=== PATIENT | male | born 1985 | race Asian ===

== ENCOUNTER 2018-01-13 10:53 | Emergency (ER) | payer OTHER ==
[~2018-01-13] VITALS: Ht 165.1 cm; Wt 83.5 kg
[~2018-01-13 10:53] MED LIST: FENO145T PO
[2018-01-13 11:13] VITALS: BP 127/71
[2018-01-13 11:16] VITALS: BP 127/71
--- NOTE | 2018-01-13 11:16 | NUR ---
32 YO M BIB SELF W/ C/O RIGHT INDEX FINGER PAIN X TODAY. PT STATES HE FELL AND LANDED ON HIS FINGER AND IT IS "JAMMED UP". PT STATES, "I AM DYING OF PAIN. MY FRIENDS SAY I AM JUST BEING A WUSS". -DEFORMITY -EDEMA -ERYTHEMA -DISCOLORATION. DENIES HITTING HIS HEAD OR LOC. DENIES N/V. AAOX4, GCS 15. PT IS AAOX4, VSS AT THSI TIME, BED DOWN, BED RAIL UP X 1, ER MD AWARE AND NOTIFIED OF PT STATUS. HX PANCREATITIS, PSYCH RX ABILIFY
--- NOTE | 2018-01-13 11:16 | NUR ---
PT AMBULATES TO THE [facility] W/ STEADY GAIT TO WAIT FOR AN AVAILABLE BED W/ VSS.
--- NOTE | 2018-01-13 12:38 | NUR ---
Patient being evaluated by physician at bedside.
[2018-01-13] MEDS ORDERED: traMADol 50 MG TAB PO ONE (12:40)
== END 2018-01-13 12:38 | disposition home or self-care (01) ==
LOC: MED 10:53
DX: M79.644 Pain in right finger(s) (principal); Z79.899 Other long term (current) drug therapy
CPT/HCPCS: 73130; 99283; Q0092

== ENCOUNTER 2018-04-08 10:06 | Emergency (ER) | payer OTHER ==
[~2018-04-08] VITALS: Ht 165.1 cm; Wt 87.5 kg
[2018-04-08 11:13] VITALS: BP 126/64
--- NOTE | 2018-04-08 14:07 | NUR ---
CALLED FOR PATIENT NO RESPONSE AT THIS TIME.
--- NOTE | 2018-04-08 14:54 | NUR ---
SECOND CALL AT THIS TIME, PT NOT PRESENT. WILL ATTEMPT 3RD CALL
== END 2018-04-08 14:07 | disposition left against medical advice (07) ==
LOC: MED 10:06
DX: R10.12 Left upper quadrant pain (principal); R19.7 Diarrhea, unspecified; Z53.21 Procedure and treatment not carried out due to patient leaving prior to being seen by health care provider
CPT/HCPCS: 81002

== ENCOUNTER 2018-04-18 03:51 | Emergency (ER) | payer OTHER ==
[~2018-04-18] VITALS: Ht 165.1 cm; Wt 86.2 kg
--- NOTE | 2018-04-18 03:58 | NUR ---
PT AMBULATED TO BED 11.
[2018-04-18 04:06] VITALS: BP 130/77
--- NOTE | 2018-04-18 04:06 | NUR ---
PT BIB SELF FOR LLQ ABD PAIN X 20MIN. PT REPORTS NON-RADIATING THROBING PAIN AT 7/10 THAT WOKE HIM UP FROM SLEEP. ABD IS FIRM, DISTENDED, TENDER TO TOUCH IN LLQ. PT JUST HAD BM STATES IT WAS FORMED. PT REPORTS NAUSEA. PT DENIES FEVER, DIARRHEA, CONSTIPATION. VSS. ER MD TO SEE PT. MEDHX:PANCREATITIS, HYPERLIPIDEMIA, DEPRESSION RX:ABILIFY
[2018-04-18] MEDS ORDERED: NACL 0.9% 500 ML IV ONE (04:19)
[2018-04-18] MEDS ORDERED: ONDANSETRON 4 MG/2 ML VIAL IVP ONE (04:20)
[2018-04-18] MEDS ORDERED: KETOROLAC 30 MG/ML VIAL IVP ONE (04:20)
--- NOTE | 2018-04-18 04:23 | NUR ---
Dr. Perez evaluating patient at bedside.
[2018-04-18] MEDS ORDERED: NACL 0.9% 1,000 ML IV ONE (04:35)
--- NOTE | 2018-04-18 04:51 | NUR ---
DROPPED OFF BLOOD DRAW TO LAB
--- NOTE | 2018-04-18 05:23 | NUR ---
LAB UNABLE TO GET RESULTS, PER LAB SAMPLE IS TOO LIPIDEMIC, THEY HAVE TO SEND SAMPLE OUT. ELAINE EVRGARA NOTIFIED.
--- NOTE | 2018-04-18 05:31 | NUR ---
PT GOING TO X-RAY AT THIS TIME. PT DENIES PAIN AT THIS TIME, NO N/V/D OR FEVER. VSS.
--- NOTE | 2018-04-18 05:38 | NUR ---
Patient returned from XRAY. RN re-evaluating patient at bedside.
[2018-04-18 06:04] LABS: BASOPHILS # (AUTO) 0.1 K/uL (0.00-0.22); BASOPHILS % (AUTO) 1.7 % (0.0-2.0); EOSINOPHILS # (AUTO) 0.1 K/uL (0-0.4); EOSINOPHILS % (AUTO) 2.1 % (0.0-4.0); HEMATOCRIT 48.9 % (36-52); HEMOGLOBIN 16.2 g/dL (12.0-18.0); LYMPHOCYTES # (AUTO) 1.6 K/uL (2.0-11.5); LYMPHOCYTES % (AUTO) 31.3 % (20.5-51.1); MEAN CORPUSCULAR HEMOGLOBIN 29 pg (27-31); MEAN CORPUSCULAR HGB CONC 33 g/dL (33-37); MEAN CORPUSCULAR VOLUME 88.6 fL (80-94); MONOCYTES # (AUTO) 0.2 K/uL (0.8-1.0); MONOCYTES % (AUTO) 4.6 % (1.7-9.3); NEUTROPHILS # (AUTO) 3.1 K/uL (1.8-7.7); NEUTROPHILS % (AUTO) 60.3 % (42.2-75.2); PLATELET COUNT (AUTO) 136 K/uL (140-450); RED BLOOD CELL COUNT(AUTO) 5.52 MIL/uL (4.20-6.10); RED CELL DISTRIBUTION WIDTH 13.3 % (11.6-13.7)
[2018-04-18 06:07] LABS: WHITE BLOOD COUNT (AUTO) 5.1 K/uL (4.8-10.8)
[2018-04-18 06:14] VITALS: BP 111/59
--- NOTE | 2018-04-18 06:14 | NUR ---
Patient discharged with v/s stable. Written and verbal after care instructions given and explained. Patient alert, oriented and verbalized understanding of instructions. Ambulatory with steady gait. All questions addressed prior to discharge. ID band removed. Patient advised to follow up with PMD. Rx of SENOKOT, MOTRIN given. Patient educated on indication of medication including possible reaction and side effects. Opportunity to ask questions provided and answered.
[2018-04-18 13:00] LABS: POTASSIUM 4.2 mmol/L (3.5-5.1)
[2018-04-18 13:01] LABS: ALBUMIN 4.4 g/dL (3.4-5.0); ANION GAP 18.2 (8-16); CREATININE 1.3 mg/dL (0.7-1.3)
== END 2018-04-18 06:14 | disposition home or self-care (01) ==
LOC: MED 03:51
DX: K59.00 Constipation, unspecified (principal); R19.7 Diarrhea, unspecified; Z79.899 Other long term (current) drug therapy; Z88.8 Allergy status to other drugs, medicaments and biological substances
CPT/HCPCS: 36415; 74022; 80053; 81002; 83690; 85025; 96360; 96361; 99284; J1885; J7030

== ENCOUNTER 2018-05-09 02:18 | Emergency (ER) | payer OTHER ==
[~2018-05-09] VITALS: Ht 165.1 cm; Wt 88.5 kg
[2018-05-09 02:25] VITALS: BP 130/72
--- NOTE | 2018-05-09 02:52 | NUR ---
PATIENT C/O RIGHT UPPER QUADRANT PAIN THAT WOKE HIM UP AT 0145. PAIN WAS SHARP, /10, NO N/V, LBM 05/08/18, ABDOMEN DISTENDED,TENDER IN THE UPPER RIGHT QUADRANT, BS ACTIVE IN ALL 4 QUADRANTS. VSS, PATIENT SEEMS NON DISTRESSED. ED MD AT BEDSIDE FOR EVALUATION.
--- NOTE | 2018-05-09 03:30 | NUR ---
SEEN BY DR CREWS.
[2018-05-09 03:44] VITALS: BP 130/72
--- NOTE | 2018-05-09 03:45 | NUR ---
Patient discharged with v/s stable. Written and verbal after care instructions given and explained. Patient alert, oriented and verbalized understanding of instructions. Ambulatory with steady gait. All questions addressed prior to discharge. ID band removed. Patient advised to follow up with PMD. Rx of LACTULOSE, MINERAL OIL given. Patient educated on indication of medication including possible reaction and side effects. Opportunity to ask questions provided and answered.
== END 2018-05-09 03:45 | disposition home or self-care (01) ==
LOC: MED 02:18
DX: K59.00 Constipation, unspecified (principal); Z79.899 Other long term (current) drug therapy
CPT/HCPCS: 74022; 99283

== ENCOUNTER 2018-06-15 23:31 | Emergency (ER) | payer OTHER ==
[~2018-06-15] VITALS: Ht 165.1 cm; Wt 89.8 kg
--- NOTE | 2018-06-15 23:35 | NUR ---
AMBULATED TO ER BED 7
--- NOTE | 2018-06-15 23:40 | NUR ---
PT BIB SELF C/O LUQ PAIN. PT STATES HE WAS SLEEPING AND WOKE UP TO LUQ PAIN, DENIES TRAUMA OR INJURY. PT STATES 7/10 SHARP LUQ PAIN X20 MINS; +TENDERNESS TO SITE. PT DENIES N/V/D. PT STATES NORMAL URINATION BATTER, LBM: 06/15/18 WNL PER PT. PT SPEAKING IN CLEAR COMPLETE SENTENCES. PT IN BED; SAFETY PRECAUTIONS IN PLACE. PENDING ER MD RITCHIE. PMH: PANCREATITIS RX: ABILIFY
[2018-06-15 23:41] VITALS: BP 119/84
--- NOTE | 2018-06-15 23:57 | NUR ---
DR. BAEZA AT BEDSIDE FOR EVALUATION.
[2018-06-16] MEDS ORDERED: NACL 0.9% 1,000 ML IV ONE ×2 (00:32→01:50)
[2018-06-16] MEDS ORDERED: MORPHINE SULFATE 4 MG/ML SYR IVP ONE (00:35)
[2018-06-16] MEDS ORDERED: ONDANSETRON 4 MG/2 ML VIAL IVP ONE (00:35)
[2018-06-16 00:52] LABS: BASOPHILS # (AUTO) 0.1 K/uL (0.00-0.22); BASOPHILS % (AUTO) 0.8 % (0.0-2.0); EOSINOPHILS # (AUTO) 0.2 K/uL (0-0.4); EOSINOPHILS % (AUTO) 2.4 % (0.0-4.0); HEMATOCRIT 46.8 % (36-52); HEMOGLOBIN 17.3 g/dL (12.0-18.0); LYMPHOCYTES # (AUTO) 2.8 K/uL (2.0-11.5); LYMPHOCYTES % (AUTO) 39.4 % (20.5-51.1); MEAN CORPUSCULAR HEMOGLOBIN 32 pg (27-31); MEAN CORPUSCULAR HGB CONC 37 g/dL (33-37); MEAN CORPUSCULAR VOLUME 85.9 fL (80-94); MONOCYTES # (AUTO) 0.4 K/uL (0.8-1.0); MONOCYTES % (AUTO) 5.9 % (1.7-9.3); NEUTROPHILS # (AUTO) 3.6 K/uL (1.8-7.7); NEUTROPHILS % (AUTO) 51.5 % (42.2-75.2); PLATELET COUNT (AUTO) 225 K/uL (140-450); RED BLOOD CELL COUNT(AUTO) 5.44 MIL/uL (4.20-6.10); RED CELL DISTRIBUTION WIDTH 13.7 % (11.6-13.7)
[2018-06-16] MEDS ORDERED: KETOROLAC 30 MG/ML VIAL IVP ONE (00:55)
--- NOTE | 2018-06-16 01:00 | NUR ---
PT CHANGED HIS MIND AND DOES NOT WANT MORPHINE. PT STATES PAIN IS NOT STRONG RIGHT NOW AND IF HE COULD GET SOMETHING NOT STRONG, ER MD AWARE. WILL FOLLOW UP W/ ORDERS
--- NOTE | 2018-06-16 01:07 | NUR ---
PT DECLINED ZOFRAN MEDICATION AT THIS TIME.
[2018-06-16 01:19] LABS: BARBITURATE, URINE NEGATIVE ng/ml (NEG <=200); BENZODIAZEPINE, URINE NEGATIVE ng/mL (NEG <=200); CANNABINOID, URINE NEGATIVE ng/mL (NEG <=50); COCAINE, URINE NEGATIVE ng/mL (NEG <=300); OPIATE, URINE NEGATIVE ng/mL (NEG <=2000); PHENCYCLIDINE SCREEN,URINE NEGATIVE ng/mL (NEG <=25)
[2018-06-16 01:21] LABS: ANION GAP 29.2 (8-16); CARBON DIOXIDE 14.8 mmol/L (21-32)
[2018-06-16 01:24] LABS: ALBUMIN 3.8 g/dL (3.4-5.0)
[2018-06-16] MEDS ORDERED: ABI10 PO (01:30)
--- NOTE | 2018-06-16 02:47 | NUR ---
Patient discharged with v/s stable. IV d/c; tip intact, pressure and bandage applied, bleeding controlled; sight benign. Written and verbal after care instructions given and explained. Patient verbalized understanding. Ambulatory with steady gait. All questions addressed prior to discharge. Advised to follow up with PMD.
[2018-06-16 02:50] VITALS: BP 118/83
== END 2018-06-16 02:47 | disposition home or self-care (01) ==
LOC: MED 23:31
DX: R10.13 Epigastric pain (principal); Z79.899 Other long term (current) drug therapy; Z88.8 Allergy status to other drugs, medicaments and biological substances
CPT/HCPCS: 36415; 80053; 80305; 81002; 83690; 85025; 96374; 99283; J1885; J2270; J2405; J7030

== ENCOUNTER 2018-07-06 02:30 | Inpatient (IN) | payer OTHER ==
[~2018-07-06] VITALS: Ht 165.1 cm; Wt 90.7 kg
[~2018-07-06 02:30] MED LIST changes: +ABI10 PO
[2018-07-06 02:35] VITALS: BP 142/87
--- NOTE | 2018-07-06 02:40 | NUR ---
33 Y/O M BIBA WITH C/O LUQ ABDOMINAL PAIN X1 HOUR. 9/10 PAIN, SHARP AND CONSTANT. PT STATED, "I ATE A FATTY MEAL AND MILKSHAKE LAST NIGHT. THEN AT 2AM THE PAIN WOKE ME UP." +N/V. LUQ TENDER TO TOUCH. BOWEL SOUNDS [id number] PRESENT. BEDRAILS X2 UP. HOB ELEVATED FOR COMFORT. ERMD NOTIFIED. WILL CONTINUE TO MONITOR.
[2018-07-06] MEDS ORDERED: PROMETHAZINE 25 MG/ML VIAL IVP ONE (02:50)
[2018-07-06] MEDS ORDERED: fentaNYL 0.05 MG/ML VIAL IVP ONE (02:50)
[2018-07-06] MEDS ORDERED: NACL 0.9% 1,000 ML IV ONE (02:50)
[2018-07-06 02:53] LABS: BASOPHILS # (AUTO) 0.1 K/uL (0.00-0.22); BASOPHILS % (AUTO) 0.4 % (0.0-2.0); EOSINOPHILS # (AUTO) 0.1 K/uL (0-0.4); HEMATOCRIT 42.9 % (36-52); HEMOGLOBIN 17.1 g/dL (12.0-18.0); LYMPHOCYTES % (AUTO) 25.1 % (20.5-51.1); MEAN CORPUSCULAR HEMOGLOBIN 35 pg (27-31); MEAN CORPUSCULAR HGB CONC 40 g/dL (33-37); MEAN CORPUSCULAR VOLUME 87.2 fL (80-94); MONOCYTES # (AUTO) 0.8 K/uL (0.8-1.0); MONOCYTES % (AUTO) 6.9 % (1.7-9.3); NEUTROPHILS # (AUTO) 7.9 K/uL (1.8-7.7); NEUTROPHILS % (AUTO) 66.6 % (42.2-75.2); PLATELET COUNT (AUTO) 220 K/uL (140-450); RED BLOOD CELL COUNT(AUTO) 4.92 MIL/uL (4.20-6.10); RED CELL DISTRIBUTION WIDTH 13.6 % (11.6-13.7); WHITE BLOOD COUNT (AUTO) 11.8 K/uL (4.8-10.8)
[2018-07-06 03:03] LABS: ANION GAP 20.5 (8-16); CARBON DIOXIDE 16.3 mmol/L (21-32); CREATININE 1.5 mg/dL (0.7-1.3); POTASSIUM 3.8 mmol/L (3.5-5.1)
[2018-07-06 03:09] LABS: ALBUMIN 3.1 g/dL (3.4-5.0); TOTAL BILIRUBIN 1.9 mg/dL (0.0-1.0)
[2018-07-06 03:44] LABS: APPEARANCE,URINE CLEAR (CLEAR); BILIRUBIN,URINE NEGATIVE (NEGATIVE); BLOOD, URINE TRACE-L (NEGATIVE); COLOR,URINE YELLOW (YELLOW); LEUKOCYTE ESTERASE ,URINE NEGATIVE (NEGATIVE); NITRITE, URINE NEGATIVE (NEGATIVE); UGLUCOSE NEGATIVE (NEGATIVE)
--- NOTE | 2018-07-06 03:50 | NUR ---
PT ASLEEP. VISIBLE CHEST RISE AND FALL. AROUSABLE TO NAME. VSS AT THIS TIME. WILL CONTINUE TO MONITOR.
[2018-07-06 03:54] LABS: RBC,URINE 0-5 /HPF (0-5); WBC,URINE 0-5 /HPF (0-5)
--- NOTE | 2018-07-06 04:55 | NUR ---
PT ASLEEP. VSS AT THIS TIME. CONTINUING TO MONITOR.
--- NOTE | 2018-07-06 05:35 | NUR ---
Patient will be admitted to care of Dr. Gonzalez. Admited to [facility]. Will go to room 105A. Belongings list completed. VSS at time of transfer. Report to JOSE Pickard. Transfer of care at this time.
--- NOTE | 2018-07-06 05:45 | NUR ---
RECEIVED FROM ER PT, AWAKE, ALERT, ORIENTED X 4, PT NOTED TO BE ABLE TO AMBULATE TO HIS BED AT THE UNIT. WITH IVF ON THE R AC G 20 IV, INTACT. RUNNING NS AT 100 ML/HR FROM THE ER. ORIENTED TO UNIT. POC DISCUSSED. PLACED AT LOW BED P[OSITION. CALL LIGHT W/IN REACH
--- NOTE | 2018-07-06 05:49 | NUR ---
C/O OF PAIN ON THE ABDOMEN 09/19 WILL CALL FOR PAIN MEDS, AND OTHER ORDERS
--- NOTE | 2018-07-06 05:57 | NUR ---
DR. DEL ANGEL CALLED BACK HUMAN RESOURCES ASSOCIATE FRO DR. QUINTEROS, ORDERED DILAUDID, ZOFRAN AND AFTER NS IVF FROM ER; TO ADMINISTER 1/2 NS AT 100 ML/HR.. ORDERED NPO
[2018-07-06] MEDS ORDERED: ONDANSETRON 4 MG/2 ML VIAL IVP PRN (06:00)
[2018-07-06] MEDS ORDERED: HYDROmorphone 1 MG/ML AMP IVP PRN (06:00)
[2018-07-06] MEDS: NACL 0.45% 1,000 ML IV SCH ×2 (06:22→16:30)
--- NOTE | 2018-07-06 06:23 | NUR ---
ORDERED FOR A NEW IVF, 02/11 NS, CANCELLED THE ONGOING NS
[2018-07-06 06:32] VITALS: BP 113/63
--- NOTE | 2018-07-06 07:05 | NUR ---
REPORT GIVEN TO NIGHT NURSE JENY, PT SLEEPING, EASILY AROUSABLE TO VERBAL STIMILI, ORIENTED AND APPROPRIATE. PT TOLERATING CLEAR LIQUID DIET, DENIES NV, STATES PAIN 2/10 AND TOLERABLE DURING SHIFT. CALL LIGHT AND PERSONAL ITEMS WITHIN EASY REACH, SAFETY MEASURES IN PLACE NO S/S OF ACUTE DISTRESS NOTED.
--- NOTE | 2018-07-06 07:45 | NUR ---
RECEIVED REPORT FROM NIGHT NURSE, PT SLEEPING, EASILY AROUSABLE TO VERBAL STIMULI, ORIENTED AND APPROPRIATE. PT DENIES, PAIN, DENIES NV, CALL LIGHT AND PERSONAL ITEMS WITHIN EASY REACH, SAFETY MEASURES IN PLACE NO S/S OF ACUTE DISTRESS NOTED, WILL CONTINUE TO MONITOR.
--- NOTE | 2018-07-06 07:54 | NUR ---
ENDORSED TO NEXT SHIFT FOR CONTINUITY OF CARE, PT ASLEEP , BUT CAN BE EASILY AROUSED BY NAME. PT IN STABLE CONDITION AT THIS TIME. Addendum: 07/06/18 at 6325 by Kell Steen RN AMEND TO [id number]
[2018-07-06 08:00] VITALS: BP 112/63
--- NOTE | 2018-07-06 09:30 | NUR ---
PT SLEEPING, EASILY AROUSABLE TO VERBAL STIMULI, ORIENTED AND APPROPRIATE. PT DENIES, PAIN, DENIES NV. STATES HE IS A SOCIAL SMOKER, PROVIDED EDUCATION ON SMOKING CESSATION, PT IS AGREEABLE. CALL LIGHT AND PERSONAL ITEMS WITHIN EASY REACH, SAFETY MEASURES IN PLACE NO S/S OF ACUTE DISTRESS NOTED, WILL CONTINUE TO MONITOR.
[2018-07-06] MEDS ORDERED: HYDROcodone/APAP 5/325 MG 1 TAB TAB PO PRN (10:40)
--- NOTE | 2018-07-06 11:30 | NUR ---
PT CONTINUES TO SLEEP INTERMITTENTLY, EASILY AROUSABLE A/O AND APPROPRIATE. PT DENIES, PAIN, DENIES NV, CALL LIGHT AND PERSONAL ITEMS WITHIN EASY REACH, SAFETY MEASURES IN PLACE NO S/S OF ACUTE DISTRESS NOTED, WILL CONTINUE TO MONITOR.
--- NOTE | 2018-07-06 12:06 | NUR ---
PATIENT HAS BEEN SCREENED AND CATEGORIZED MODERATE NUTRITION RISK. PATIENT WILL BE SEEN WITHIN 3-5 DAYS OF ADMISSION. 07/09/18ADA DAUGHERTY MBA, RD
--- NOTE | 2018-07-06 13:20 | NUR ---
PER US TECH ABD US COMPLETE, PT AWAKENED AND OFFERED CLEAR LIQUID DIET TRAY, ACCEPTED TRAY AND RESUMED SLEEPING. NO S/S OF ACUTE DISTRESS NOTED AT THIS TIME CALL LIGHT AND PERSONAL ITEMS WITHIN EASY REACH, SAFETY MEASURES IN PLACE, WILL CONTINUE TO MONITOR.
--- NOTE | 2018-07-06 15:30 | NUR ---
PT AWAKE A/O FAMILY AT BEDSIDE, PT TOLERATED PO INTAKE WELL DENIES N/V STATES PAIN 1-2/10 AND IS TOLERABLE. CALL LIGHT AND PERSONAL ITEMS WITHIN EASY REACH, SAFETY MEASURES IN PLACE, NO S/S OF ACUTE DISTRESS AT THIS TIME, WILL CONTINUE TO MONITOR.
[2018-07-06 16:00] VITALS: BP 129/76
--- NOTE | 2018-07-06 16:30 | NUR ---
DR REESE PAGED REGARDING ABDOMINAL XR RESULTS AND CURRENT VS, AWAITING CALL BACK, CHARGE NURSE AWARE.
--- NOTE | 2018-07-06 17:21 | NUR ---
DR REESE IN HOUSE ROUNDING, NOTIFIED OF ABD ULTRASOUND RESULTS AND VS W ELEVATED TEMP AND BP, NO NEW ORDERS RECEIVED.
--- NOTE | 2018-07-06 17:30 | NUR ---
PT NOTED NOT TO HAVE ORDER FOR TEMPERATURE MANAGEMENT, DR REESE NOTIFIED; ORDERS TO BE WRITTEN.
[2018-07-06] MEDS ORDERED: ACETAMINOPHEN 325 MG TAB PO PRN (17:35)
--- NOTE | 2018-07-06 19:20 | NUR ---
RECEIVED REPORT FROM AM NURSE. PT SLEEPING IN BED BUT EASILY AROUSABLE. NO C/O DISCOMFORT. LEFT AC 20 G INTACT AND INFUSING WELL. SAFETY PRECAUTIONS IN PLACE, NON-SLIP SOCKS, BED IN LOW POSITION, CALL LIGHT WITHIN REACH. WILL CONTINUE TO MONITOR.
--- NOTE | 2018-07-06 21:05 | NUR ---
ROUNDED ON PT. PT SLEEPING IN BED, NO VISIBLE SIGNS OF DISTRESS. SAFETY MEASURES IN PLACE, CALL LIGHT WITHIN REACH. WILL CONTINUE TO MONITOR.
--- NOTE | 2018-07-06 23:15 | NUR ---
ROUNDED ON PT. PT FOOD TRAY AT BEDSIDE. PT STATED THAT HE WOULD STILL EAT FOOD. PT WAS GIVEN A POPSICLE REQUESTED. NO C/O DISCOMFORT. WILL CONTINUE TO MONITOR.
[2018-07-07] VITALS: BP 115/68
--- NOTE | 2018-07-07 | NUR ---
VITALS TAKEN. PT SLEEPING BUT EASILY AROUSABLE. PT BROUGHT PILLOW PER REQUEST. ALL NEEDS ATTENDED TO. SAFETY MEASURES IN PLACE. CALL LIGHT WITHIN REACH. WILL CONTINUE TO MONITOR.
--- NOTE | 2018-07-07 02:00 | NUR ---
ROUNDED ON PT. PT ASLEEP IN BED. BREATHING EQUAL AND UNLABORED. SAFETY MEASURES IN PLACE. CALL LIGHT WITHIN REACH. WILL CONTINUE TO MONITOR.
[2018-07-07] MEDS: NACL 0.45% 1,000 ML IV SCH ×3 (02:17→22:52)
--- NOTE | 2018-07-07 04:30 | NUR ---
ROUNDED ON PT. PT ASLEEP IN BED. NO VISIBLE SIGNS OF DISTRESS. CALL LIGHT WITHIN REACH. WILL CONTINUE TO MONITOR.
--- NOTE | 2018-07-07 06:15 | NUR ---
ROUNDED ON PT. PT SLEEPING IN BED. BREATHING EQUAL AND UNLABORED. CALL LIGHT WITHIN REACH. WILL ENDORSE TO AM NURSE FOR CONTINUITY OF CARE.
--- NOTE | 2018-07-07 07:05 | NUR ---
ENDORSED PT TO AM NURSE, PT IN STABLE CONDITION.
[2018-07-07 07:09] LABS: BASOPHILS % (AUTO) 0.3 % (0.0-2.0); EOSINOPHILS # (AUTO) 0.1 K/uL (0-0.4); EOSINOPHILS % (AUTO) 1.4 % (0.0-4.0); HEMATOCRIT 41.9 % (36-52); HEMOGLOBIN 14.4 g/dL (12.0-18.0); LYMPHOCYTES # (AUTO) 1.6 K/uL (2.0-11.5); LYMPHOCYTES % (AUTO) 16.1 % (20.5-51.1); MEAN CORPUSCULAR HEMOGLOBIN 30 pg (27-31); MEAN CORPUSCULAR HGB CONC 34 g/dL (33-37); MONOCYTES # (AUTO) 0.7 K/uL (0.8-1.0); MONOCYTES % (AUTO) 6.5 % (1.7-9.3); NEUTROPHILS # (AUTO) 7.7 K/uL (1.8-7.7); NEUTROPHILS % (AUTO) 75.7 % (42.2-75.2); PLATELET COUNT (AUTO) 184 K/uL (140-450); RED BLOOD CELL COUNT(AUTO) 4.82 MIL/uL (4.20-6.10); WHITE BLOOD COUNT (AUTO) 10.2 K/uL (4.8-10.8)
--- NOTE | 2018-07-07 07:25 | NUR ---
PATIENT WAS AWAKE, ALERT. RESPIRATION EVEN, UNLABOR ON ROOM AIR. SKIN DRY AND WARM. IV PATENT AND INTACT. DENIED PAIN AT THIS TIME. PLAN OF CARE WAS DISCUSSED WITH PATIENT. BED AT LOW POSITION, SIDE RAILS UP. CALL LIGHT WITHIN REACH
[2018-07-07 08:00] VITALS: BP 113/78
[2018-07-07 08:11] LABS: CHOL/HDL RATIO 6.3 (1-4.5)
[2018-07-07 08:12] LABS: ALBUMIN 3.2 g/dL (3.4-5.0); ANION GAP 14.1 (8-16); CARBON DIOXIDE 25.1 mmol/L (21-32); CREATININE 1.3 mg/dL (0.7-1.3); POTASSIUM 4.2 mmol/L (3.5-5.1); TOTAL BILIRUBIN 2.6 mg/dL (0.0-1.0)
[2018-07-07] MEDS: FENOFIBRATE 48 MG TAB PO SCH (09:45)
--- NOTE | 2018-07-07 10:00 | NUR ---
PT WAS ALERT, AWAKE. MEDICATIONS WERE GIVEN PER ORDER. PT WAS OCCUPIED IN LAPTOP. NO DISTRESS NOTED.
--- NOTE | 2018-07-07 12:00 | NUR ---
PATIENT WAS AWAKE, ALERT, EATING LUNCH COMFORTABLY. RESPIRATION EVEN, UNLABOR ON ROOM AIR. DENIED N/V. PATIENT TOLERATING DIET WELL. NO DISTRESS NOTED AT THIS TIME
--- NOTE | 2018-07-07 14:00 | NUR ---
PATIENT WAS SLEEPING COMFORTABLY, RESPIRATION EVEN, UNLABOR ON ROOM AIR. NO DISTRESS NOTED AT THIS TIME
[2018-07-07 16:00] VITALS: BP 109/73
--- NOTE | 2018-07-07 16:00 | NUR ---
PT ALERT, AWAKE. NO C/O PAIN AT THIS TIME. CALL LIGHT AND PERSONAL ITEMS WITHIN REACH. SAFETY MEASURES IN PLACE.
--- NOTE | 2018-07-07 18:23 | NUR ---
PT ALERT AND AWAKE, OCCUPIED IN RESTROOM. NO C/O PAIN AT THIS MOMENT.
--- NOTE | 2018-07-07 19:15 | NUR ---
ENDORSEMENT GIVEN TO BROADCAST DESIGNER NURSE. PATIENT IS STABLE AT THIS TIME
--- NOTE | 2018-07-07 19:16 | NUR ---
RECEIVED REPORT FROM AM NURSE. PT WATCHING TV IN BED, AWAKE, ALERT AND ORIENTED X4. PT ABLE TO VERBALIZE NEEDS. LT AC 20G INTACT AND INFUSING WELL. PT URINAL AT BEDSIDE. SAFETY MEASURES IN PLACE. CALL LIGHT WITHIN REACH. WILL CONTINUE TO MONITOR.
--- NOTE | 2018-07-07 21:30 | NUR ---
PT AWAKE, ALERT AND ORIENTED WATCHING TV IN BED. PT RECEIVED APPLE JUICE REQUESTED. ALL NEEDS ATTENDED TO. SAFETY MEASURES IN PLACE. URINAL AT BEDSIDE, CALL LIGHT WITHIN REACH. WILL CONTINUE TO MONITOR.
--- NOTE | 2018-07-07 23:00 | NUR ---
ROUNDED ON PT. PT AWAKE, ALERT AND ORIENTED WATCHING TV IN BED. PT ASKED TO D/C IV FLUIDS. IT WAS EXPLAINED TO THE PT THE RATIONAL FOR IV FLUIDS. PT AGREED TO BE COMPLIANT WITH IV FLUID ADMINISTRATION. ALL NEEDS ATTENDED TO. SAFETY MEASURES IN PLACE. CALL LIGHT WITHIN REACH. WILL CONTINUE TO MONITOR.
[2018-07-08] VITALS: BP 100/54
--- NOTE | 2018-07-08 | NUR ---
VITALS TAKEN. PT ASLEEP BUT EASILY AROUSABLE. NO C/O DISCOMFORT. SAFETY MEASURES IN PLACE. URINAL AT BEDSIDE, CALL LIGHT WITHIN REACH. WILL CONTINUE TO MONITOR.
--- NOTE | 2018-07-08 02:00 | NUR ---
ROUNDED ON PT. PT SLEEPING IN BED, BREATHING EQUAL AND UNLABORED. CALL LIGHT WITHIN REACH.
--- NOTE | 2018-07-08 04:00 | NUR ---
ROUNDED ON PT. PT SLEEPING. BREATHING EQUAL AND UNLABORED. CALL LIGHT WITHIN REACH.
--- NOTE | 2018-07-08 06:00 | NUR ---
ROUNDED ON PT. LAB AT BEDSIDE. PT AWAKE, ALERT AND ORIENTED. NO C/O DISCOMFORT. CALL LIGHT AT BEDSIDE.
--- NOTE | 2018-07-08 07:00 | NUR ---
RECEIVED REPORT FROM ELECTRICIAN APPRENTICE POWERHOUSE NURSE. PT AWAKE, ALERT IN BED. RESPIRATIONS EVEN AND UNLABORED ON RA. SKIN DRY AND WARM. IV PATENT AND INTACT. PT DENIES PAIN, N/V. PT TOLERATING FULL LIQUID DIET WELL. WILL ADVANCE DIET PER ORDER. POC WAS DISCUSSED WITH PATIENT. BED AT LOW POSITION. SIDERAILS X2 ARE UP. CALL LIGHT WITHIN REACH.
[2018-07-08 07:02] LABS: BASOPHILS % (AUTO) 0.4 % (0.0-2.0); EOSINOPHILS # (AUTO) 0.3 K/uL (0-0.4); EOSINOPHILS % (AUTO) 3.3 % (0.0-4.0); HEMATOCRIT 40.7 % (36-52); HEMOGLOBIN 13.7 g/dL (12.0-18.0); LYMPHOCYTES # (AUTO) 1.4 K/uL (2.0-11.5); LYMPHOCYTES % (AUTO) 17.1 % (20.5-51.1); MEAN CORPUSCULAR HEMOGLOBIN 30 pg (27-31); MEAN CORPUSCULAR HGB CONC 34 g/dL (33-37); MEAN CORPUSCULAR VOLUME 87.3 fL (80-94); MONOCYTES # (AUTO) 0.6 K/uL (0.8-1.0); MONOCYTES % (AUTO) 7.2 % (1.7-9.3); NEUTROPHILS # (AUTO) 5.9 K/uL (1.8-7.7); PLATELET COUNT (AUTO) 189 K/uL (140-450); RED BLOOD CELL COUNT(AUTO) 4.66 MIL/uL (4.20-6.10); RED CELL DISTRIBUTION WIDTH 13.9 % (11.6-13.7); WHITE BLOOD COUNT (AUTO) 8.1 K/uL (4.8-10.8)
--- NOTE | 2018-07-08 07:06 | NUR ---
ENDORSED TO AM NURSE. PT IN STABLE CONDITION.
[2018-07-08 07:29] LABS: ALBUMIN 3.1 g/dL (3.4-5.0); ANION GAP 13.2 (8-16); CARBON DIOXIDE 25.1 mmol/L (21-32); CREATININE 1.3 mg/dL (0.7-1.3); POTASSIUM 4.3 mmol/L (3.5-5.1); TOTAL BILIRUBIN 2.1 mg/dL (0.0-1.0)
[2018-07-08 07:45] LABS: MAGNESIUM 2.1 mg/dL (1.8-2.4); PHOSPHORUS 2.9 mg/dL (2.5-4.9)
[2018-07-08 08:00] VITALS: BP 117/61
[2018-07-08] MEDS: NACL 0.45% 1,000 ML IV SCH (08:57)
[2018-07-08] MEDS: FENOFIBRATE 48 MG TAB PO SCH (09:00)
--- NOTE | 2018-07-08 09:00 | NUR ---
PATIENT WAS AWAKE, ALERT. RESPIRATION EVEN, UNLABOR ON ROOM AIR. MEDS WERE GIVEN PER ORDER. NO DISTRESS NOTED AT THIS TIME.
--- NOTE | 2018-07-08 10:35 | NUR ---
CALLED OFFICE OF DR ROQUE [phone] SPOKE TO JESSICA, FOLLOW UP APPOINTMENT MADE FOR 07/16/18 AT 1015AM AT [address], [place], [place] [address]. COPY OT APPOINTMENT SCHEDULE GIVEN TO PATIENT AND PRIMARY NURSE AYAD GARCIA MADE AWARE.
--- NOTE | 2018-07-08 11:27 | NUR ---
DISCHARGE INSTRUCTIONS AND PRESCRIPTIONS WERE GIVEN AND EXPLAINED TO THE PT. PT VERBALIZED UNDERSTANDING. FOLLOW-UP APPT WAS GIVEN PER PATIENT CARE. IV WAS REMOVED. CATHETER INTACT. NO ACTIVE BLEEDING SEEN. Addendum: 07/08/18 at 1132 by Liudmila Jackson RN PT VERBALIZED THAT NURSING IS NOT ALLOWED TO CONTACT FAMILY MEMBERS REGARDING DISCHARGE PLAN.
--- NOTE | 2018-07-08 11:56 | NUR ---
PANCREATITIS EDUCATION WAS PROVIDED TO PT, AND PT ACCEPTED.
--- NOTE | 2018-07-08 12:00 | NUR ---
PATIENT STATED HE WILL BE STAYING AT [address] [place] [address] JOVAN ALEGRIA NEVERSINK, NOT WANT HIS INFORMATION RELEASED TO ANYONE. PATIENT WAS ESCORTED OUT TO [facility], AMBULATORY WITH STEADY GAIT. ALL BELONGINGS WERE TAKEN WITH THE PATIENT. PATIENT IS STABLE AT THIS TIME.
== END 2018-07-08 12:00 | disposition home or self-care (01) | DRG 282 ==
LOC: MED 02:30 → MTU 05:06
PROVIDERS: ADMIT Internal Medicine Pulmonary Disease; ATTEND Internal Medicine Pulmonary Disease
DX: K85.90 Acute pancreatitis without necrosis or infection, unspecified (principal); N17.0 Acute kidney failure with tubular necrosis; E87.1 Hypo-osmolality and hyponatremia; E78.1 Pure hyperglyceridemia; E86.9 Volume depletion, unspecified; E78.5 Hyperlipidemia, unspecified; F31.9 Bipolar disorder, unspecified; Z91.14 Patient's other noncompliance with medication regimen; Z88.2 Allergy status to sulfonamides; I10 Essential (primary) hypertension; Z87.891 Personal history of nicotine dependence; E44.1 Mild protein-calorie malnutrition
CPT/HCPCS: 36415; 76700; 80053; 81001; 82150; 83036; 83690; 83735; 84100; 85025; 87081; 96361; 96374; 96375; 99285; J1170; J2550; J3010; Q0092

== ENCOUNTER 2018-07-18 02:49 | Inpatient (IN) | payer OTHER ==
[~2018-07-18] VITALS: Ht 165.1 cm; Wt 99.8 kg
[2018-07-18 02:50] VITALS: BP 124/70
--- NOTE | 2018-07-18 03:03 | NUR ---
33 Y/O M PRESENTED TO ED WITH C/O LUQ ABDOMINAL PAIN. 11/19, ACHING. PAIN DOESN'T RADIATE. PER PT, "6 WEEKS AGO I WAS DIAGNOSED WITH PANCREATITIS. THIS FEELS JUST LIKE IT." TENDER TO TOUCH. +BOWEL SOUNDS X4 QUADRANTS. DENIES N/V/D. ERMD NOTIFIED. WILL CONTINUE TO MONITOR.
[2018-07-18] MEDS ORDERED: NACL 0.9% 1,000 ML IV SCH (03:31)
[2018-07-18] MEDS ORDERED: MORPHINE SULFATE 4 MG/ML SYR IVP ONE ×3 (03:35→11:45)
[2018-07-18] MEDS ORDERED: ONDANSETRON 4 MG/2 ML VIAL IVP ONE (03:35)
[2018-07-18 04:30] LABS: BASOPHILS % (AUTO) 0.5 % (0.0-2.0); EOSINOPHILS # (AUTO) 0.1 K/uL (0-0.4); EOSINOPHILS % (AUTO) 1.2 % (0.0-4.0); HEMATOCRIT 41.9 % (36-52); HEMOGLOBIN 14.8 g/dL (12.0-18.0); LYMPHOCYTES % (AUTO) 20.5 % (20.5-51.1); MEAN CORPUSCULAR HEMOGLOBIN 31 pg (27-31); MEAN CORPUSCULAR HGB CONC 35 g/dL (33-37); MEAN CORPUSCULAR VOLUME 87.2 fL (80-94); MONOCYTES # (AUTO) 0.5 K/uL (0.8-1.0); MONOCYTES % (AUTO) 4.9 % (1.7-9.3); NEUTROPHILS % (AUTO) 72.9 % (42.2-75.2); PLATELET COUNT (AUTO) 96 K/uL (140-450); RED CELL DISTRIBUTION WIDTH 13.6 % (11.6-13.7); WHITE BLOOD COUNT (AUTO) 9.6 K/uL (4.8-10.8)
--- NOTE | 2018-07-18 04:32 | NUR ---
RECEIVED CALL FROM LAB, PT BLOODWORK WILL HAVE TO BE SENT OUT DUE BLOOD BEING LIPEMIC. DR. BEDOYA MADE AWARE. Addendum: 07/18/18 at 0525 by ViRTUAL INTERACTiVE RECEIVED CALL FROM LAB, PT BLOODWORK WILL HAVE TO BE SENT OUT DUE BLOOD BEING LIPEMIC. CT SCAN DELAYED UNTIL LABS ARE RECIEVED. DR. BEDOYA MADE AWARE.
[2018-07-18 04:43] LABS: APPEARANCE,URINE CLEAR (CLEAR); BILIRUBIN,URINE NEGATIVE (NEGATIVE); BLOOD, URINE NEGATIVE (NEGATIVE); COLOR,URINE YELLOW (YELLOW); LEUKOCYTE ESTERASE ,URINE NEGATIVE (NEGATIVE); NITRITE, URINE NEGATIVE (NEGATIVE); PH,URINE 5.5 (5.0-9.0); UGLUCOSE NEGATIVE (NEGATIVE)
--- NOTE | 2018-07-18 05:05 | NUR ---
PT ASLEEP. VISIBLE CHEST RISE AND FALL. VSS AT THIS TIME. WILL CONTINUE TO MONITOR.
--- NOTE | 2018-07-18 06:00 | NUR ---
PT C/O 11/[address] BEDOYA MADE AWARE.
[2018-07-18] MEDS ORDERED: NACL 0.9% 1,000 ML IV ONE (06:45)
--- NOTE | 2018-07-18 07:03 | NUR ---
REPORT GIVEN TO JOSE MARTINO. TRANSFER OF CARE AT THIS TIME.
--- NOTE | 2018-07-18 07:47 | NUR ---
lab being sent to [facility] for processing---lead consultant requested but ETA unavailable at this time. aware
--- NOTE | 2018-07-18 09:22 | NUR ---
pt states he feels "better", pt positioned to comfort, vss, pt resting in bed, no new needs at this time.
[2018-07-18 10:43] LABS: BARBITURATE, URINE NEG. ng/ml (NEG <=200); BENZODIAZEPINE, URINE NEG. ng/mL (NEG <=200); CANNABINOID, URINE NEG. ng/mL (NEG <=50); COCAINE, URINE NEG. ng/mL (NEG <=300); OPIATE, URINE POS. ng/mL (NEG <=2000); PHENCYCLIDINE SCREEN,URINE NEG. ng/mL (NEG <=25)
[2018-07-18] MEDS ORDERED: NACL 0.9% 2,000 ML IV SCH (11:43)
[2018-07-18] MEDS ORDERED: GLYCOPYRROLATE 0.2 MG/ML VIAL IV ONE (11:45)
[2018-07-18] MEDS ORDERED: KETOROLAC 30 MG/ML VIAL IVP ONE (11:45)
[2018-07-18 11:46] LABS: POTASSIUM 4.4 mmol/L (3.5-5.1)
[2018-07-18 11:49] LABS: ANION GAP 13.9 (8-16)
--- NOTE | 2018-07-18 11:49 | NUR ---
LAB HAD REPORTED NA 110 BUT CALLED BACK SOON AFTER TO STATE THAT AFTER CORRECTION NA IS 132 NOT CRITICAL--- UPDATED
[2018-07-18 11:50] LABS: CARBON DIOXIDE 24.5 mmol/L (21-32)
[2018-07-18 11:55] LABS: CREATININE 1.1 mg/dL (0.7-1.3)
[2018-07-18 11:56] LABS: TOTAL BILIRUBIN 0.7 mg/dL (0.0-1.0)
--- NOTE | 2018-07-18 11:57 | NUR ---
Dr. Garcia evaluating patient at bedside.
[2018-07-18] MEDS ORDERED: ONDANSETRON 4 MG/2 ML VIAL IVP PRN (12:00)
[2018-07-18 12:03] LABS: ALBUMIN 3.5 g/dL (3.4-5.0)
[2018-07-18] MEDS: NACL 0.9% 1,000 ML IV SCH ×2 (12:17→20:48)
--- NOTE | 2018-07-18 13:00 | NUR ---
RECEIVED REPORT FROM ED JOSE YORK. PT IN STABLE CONDITION. DROWSY BUT EASILY AROUSABLE BY VOICE. AOX4. DENIES PAIN AND DISCOMFORT NOW. NO N/V. LUNGS CTAB. BS ACTIVE IN ALL QUADRANTS, UPPER ABD TENDER TO DEEP PALPATION. AMBULATORY WITHOUT ASSIST. SKIN INTACT. IV SITE PATENT AND ASYMPTOMATIC. INTRODUCED SELF AND EXPLAINED POC. BED LOCKED & LOW. ALL SAFETY PRECAUTIONS IN PLACE, WILL CONTINUE TO MONITOR.
[2018-07-18 13:05] VITALS: BP 136/78
--- NOTE | 2018-07-18 13:11 | NUR ---
Patient will be admitted to care of dr castellon. Admited to tele. Will go to room 119-b. Belongings list completed. Report to curtis carr.
[2018-07-18] MEDS: MORPHINE SULFATE 2 MG/ML SYR IVP PRN ×3 (13:53→21:56)
--- NOTE | 2018-07-18 13:53 | NUR ---
PT SATURATING 91-92% ON RA. RR 21. PLACED ON 2L NC- PT SATURATING AT 94-95%. Addendum: 07/18/18 at [address] Meng, RN REAL TIME TIME [id number]
--- NOTE | 2018-07-18 13:57 | NUR ---
ADMINISTERED MORPHINE IVP FOR C/O 6/10 ABD PAIN. DENIES N/V.
--- NOTE | 2018-07-18 15:06 | NUR ---
PT IS VERY DROWSY NOW. EASILY AROUSABLE BY VOICE BUT QUICKLY FALLS BACK ASLEEP. WILL OBTAIN ADMISSION ASSESSMENT WHEN PATIENT IS MORE ALERT.
--- NOTE | 2018-07-18 15:53 | NUR ---
PT SATURATING 91-92% ON RA. RR 21. PLACED ON 2L NC- PT SATURATING AT 94-95%. Addendum: 07/18/18 at [address] Meng, RN NO S/S RESPIRATORY DISTRESS. AOX4
[2018-07-18 16:00] VITALS: BP 146/80
--- NOTE | 2018-07-18 19:22 | NUR ---
ENDORSED POC TO MACHINE CLERICAL VERIFIER RN. PT IN STABLE CONDITION.
--- NOTE | 2018-07-18 19:22 | NUR ---
RECEIVED REPORT FROM DAY SHIFT NURSE FOR CONTINUITY OF CARE. PATIENT COMPLAINING OF ABDOMINAL PAIN RATE OF 9/10. BLOOD PRESSURE WAS 100/40 (60). PATIENT IS ON ROOM AIR. IV ON RIGHT AC 20G NS AT 125 ML/HR. WILL ADMINISTER MORPHINE FOR PAIN AT THE SCHEDULED TIME. WILL CONTINUE TO MONITOR PATIENT, AND EDUCATED ABOUT BREATHING TECHNIQUES FOR RELIEF OF PAIN.
--- NOTE | 2018-07-18 19:55 | NUR ---
ADMINISTERED MORPHINE ACCORDING TO MD ORDER Addendum: 07/18/18 at 2200 by Haydee Levy RN WRONG TIME DISREGARD
[2018-07-18 20:00] VITALS: BP 100/40
--- NOTE | 2018-07-18 20:34 | NUR ---
DR KHUN CALLED ASKED TO PUT IN ORDER FOR US OF RIGHT LOWER QUADRANT TO BE DONE 07/19/18 ROUTINE. WILL PUT IN ORDER.
--- NOTE | 2018-07-18 20:49 | NUR ---
DUE NS GIVEN INFUSING AT 125 ML/HR
--- NOTE | 2018-07-18 21:20 | NUR ---
RE-ASSESSED BP ON LEFT CALF 102/40 (79). WILL GIVE MORPHINE WHEN SCHEDULED.
--- NOTE | 2018-07-18 21:55 | NUR ---
ADMINISTERED MORPHINE ACCORDING TO MD ORDER
--- NOTE | 2018-07-18 23:55 | NUR ---
VITAL SIGNS CHECKED: BP 138/79, P 137, T 100.7, RR 22, O2 95%. CALLED DR BABCOCK TO NOTIFY RE: TEMPERATURE AND NPO STATUS. WILL WAIT FOR SCREEN EXAMINER - DR. TEJEDA TO CALL. WILL START COOLING MEASURES, AND WILL CONTINUE TO MONITOR PT.
[2018-07-18 23:56] VITALS: BP 138/79
[2018-07-19] VITALS (10 sets, daily range): BP systolic 97–138; BP diastolic 63–92
--- NOTE | 2018-07-19 00:37 | NUR ---
CALL BACK FROM DR TEJEDA, ORDERS FOR 2 BLOOD CULTURES, UA, TYLENOL 650 MG PRN, ZOSYN 3.375 G, NPO EX MEDICATION DIET. WILL PUT IN ORDERS.
--- NOTE | 2018-07-19 01:19 | NUR ---
PATIENT PULLED OUT IV IN RIGHT AC, CATH INTACT, WILL START NEW IV. WILL GIVE TYLENOL 650 MG ACCORDING TO MD ORDER
[2018-07-19] MEDS ORDERED: ACETAMINOPHEN 325 MG TAB ONE (01:20)
[2018-07-19] MEDS: ACETAMINOPHEN 325 MG TAB PO PRN ×2 (01:27→10:21)
--- NOTE | 2018-07-19 01:30 | NUR ---
INSERTED NEW IV. 22 GA ON RIGHT UPPER ARM RUNNING WITH NS AT 125 ML/HR.
--- NOTE | 2018-07-19 01:57 | NUR ---
URINE SAMPLE COLLECTED AND SENT TO LAB, NEW ACCOUNTS BANKING REPRESENTATIVE AT BEDSIDE GETTING BLOOD FOR BLOOD CULTURE.
[2018-07-19 02:10] LABS: APPEARANCE,URINE HAZY (CLEAR); BILIRUBIN,URINE 1+ (NEGATIVE); BLOOD, URINE TRACE-I (NEGATIVE); COLOR,URINE YELLOW (YELLOW); LEUKOCYTE ESTERASE ,URINE NEGATIVE (NEGATIVE); NITRITE, URINE NEGATIVE (NEGATIVE); PH,URINE 5.5 (5.0-9.0); UGLUCOSE TRACE (NEGATIVE)
[2018-07-19] MEDS: MORPHINE SULFATE 2 MG/ML SYR IVP PRN ×3 (02:47→16:52)
--- NOTE | 2018-07-19 02:47 | NUR ---
PATIENT COMPLAINING OF ABD PAIN RATE OF 9/10. ADMINISTERED MORPHINE 2MG IVP. WILL CONTINUE TO MONITOR PATIENT.
[2018-07-19] MEDS: NACL 0.9% 1,000 ML IV SCH ×3 (03:15→18:24)
[2018-07-19 03:48] LABS: FINE GRANULAR CASTS,URINE 0-10 /LPF (None Seen); HYALINE CASTS, URINE 0-10 /LPF (None Seen)
--- NOTE | 2018-07-19 04:00 | NUR ---
VITAL SIGNS CHECKED, HR 107, T 98.4. NO SIGNS OF DISTRESS AT THIS TIME. WILL CONTINUE TO MONITOR PATIENT.
--- NOTE | 2018-07-19 05:00 | NUR ---
PATIENT ASLEEP WITH NO SIGNS OF DISTRESS. WILL CONTINUE TO MONITOR PATIENT.
--- NOTE | 2018-07-19 06:00 | NUR ---
PATIENT LYING IN BED, COMPLAINS OF PAIN. REFUSED MORPHINE, HE WANTS TO SPEAK TO MD TO CHANGE PAIN MEDS, AND DIAGNOSIS. WILL ENDORSE TO AM SHIFT NURSE.
--- NOTE | 2018-07-19 07:05 | NUR ---
ENDORSED PATIENT TO DAY SHIFT NURSE FOR CONTINUITY OF CARE. PATIENT ON CHAIR, SENIOR C SOFTWARE ENGINEER AT BEDSIDE DRAWING BLOOD. PATIENT COMPLAINS OF "FEELING WEIRD", WOULD LIKE TO SPEAK TO MD. PATIENT ON ROOM AIR, AND IN STABLE CONDITION.
--- NOTE | 2018-07-19 07:10 | NUR ---
RECEIVED REPORT FROM STEREO OPERATOR RN SUMMER. PT IS LETHARGIC BUT ABLE TO ANSWER QUESTIONS APPROPRIATELY. AOX4. FALLS BACK ASLEEP EASILY DURING ASSESSMENT. STATES 6/10 ABD PAIN BUT REFUSING MORPHINE, STATES HE WANTS TO TALK TO HIMSELF WHEN COMES IN REGARDING CHANGING PAIN MED. NO N/V. TACHYPNEIC. BS ACTIVE IN ALL QUADRANTS, UPPER ABD TENDER TO PALPATION. AMBULATORY WITHOUT ASSIST. SKIN INTACT. IV SITE PATENT AND ASYMPTOMATIC.
--- NOTE | 2018-07-19 07:16 | NUR ---
DR. NASH AT BEDSIDE TO EVALUATE PATIENT. PER , TRANSFER PATIENT TO ICU FOR CLOSER MONITORING.
--- NOTE | 2018-07-19 07:30 | NUR ---
GAVE REPORT TO REVIEW SCHEDULING COORDINATORJOSE LANTIGUA.
--- NOTE | 2018-07-19 07:39 | NUR ---
TECH AT BEDSIDE FOR CXR.
--- NOTE | 2018-07-19 07:55 | NUR ---
TRANSFERRED PATIENT TO ICU. ENDORSED TO TYRE FINISHER AND EXAMINER GRZEGORZ- 250 ML BOLUS AND MARQUEZ CATH INSERTION.
[2018-07-19] MEDS ORDERED: PIPER/TAZO 3.375GM/D5W PREMIX 50 ML IV SCH (08:00)
--- NOTE | 2018-07-19 08:05 | NUR ---
PATIENT HAS BEEN SCREENED AND CATEGORIZED MODERATE NUTRITION RISK. PATIENT WILL BE SEEN WITHIN 3-5 DAYS OF ADMISSION. 07/20/18-07/22/[address]
--- NOTE | 2018-07-19 08:06 | NUR ---
PATIENT IS HERE FROM [facility], RECEIVED REPORT FROM [facility] RN, LOYD, FOR CONTINUITY OF CARE. PATIENT IS AAOX4, LETHARGIC, ABLE TO FOLLOW COMMANDS AND MAKE NEEDS KNOWN. SKIN IS WARM, DRY, AFEBRILE, INTACT. HE HAS PERIPHERAL IV SITE TO DONYA, ASYMPTOMATIC AND PATENT. HE IS ON NASAL CANNULA AT 3LPM, TACHYPNEIC, BREATHING EVEN AND UNLABORED. PATIENT IS SINUS TACHY ON MONITOR, COMPLAINS OF 3/10 PAIN THAT IS TOLERABLE. HOB IS SEMI FOWLERS, BED LOCKED, SAFETY ALARMS AND PRECAUTIONS ASSESSED AND IN PLACE. NO SIGNS OF DISTRESS AT THIS TIME. WILL CONTINUE TO MONITOR
[2018-07-19] MEDS ORDERED: NACL 0.9% 250 ML IV SCH (08:15)
--- NOTE | 2018-07-19 08:30 | NUR ---
PATIENT EDUCATED ON MARQUEZ CATHETER THAT WAS ORDERED, PATIENT REFUSED MARQUEZ CATHETER AT THIS TIME, STATES HE DOESN'T WANT A MARQUEZ.
[2018-07-19 08:44] LABS: HEMATOCRIT 47.3 % (36-52); HEMOGLOBIN 15.3 g/dL (12.0-18.0); RED BLOOD CELL COUNT(AUTO) 5.42 MIL/uL (4.20-6.10); WHITE BLOOD COUNT (AUTO) 19.9 K/uL (4.8-10.8)
[2018-07-19 08:45] LABS: MEAN CORPUSCULAR HEMOGLOBIN 28 pg (27-31); MEAN CORPUSCULAR HGB CONC 32 g/dL (33-37); MEAN CORPUSCULAR VOLUME 87.2 fL (80-94); PLATELET COUNT (AUTO) 334 K/uL (140-450); RED CELL DISTRIBUTION WIDTH 14.1 % (11.6-13.7)
--- NOTE | 2018-07-19 08:49 | NUR ---
PATIENT VOIDED 3OOML WITH URINAL, NO COMPLAINTS AT THIS TIME. WILL CONTINUE TO MONITOR
[2018-07-19 09:47] LABS: BASOPHILS % (MANUAL) 0 % (0-2); EOSINOPHILS % (MANUAL) 0 % (0-4); LYMPHOCYTES % (MANUAL) 5 % (20-46); MONOCYTES % (MANUAL) 4 % (5-12)
[2018-07-19] MEDS: ENOXAPARIN 40 MG/0.4 ML SYR SUBQ SCH (09:49)
--- NOTE | 2018-07-19 10:21 | NUR ---
PATIENT COMPLAINS OF MILD PAIN, GIVEN TYLENOL PRN
--- NOTE | 2018-07-19 10:30 | NUR ---
US TECH AT BEDSIDE.
--- NOTE | 2018-07-19 11:18 | NUR ---
DR. BABCOCK IS HERE TO SEE PATIENT, UPDATED ON PATIENT'S CONDITION. NEW ORDERS RECEIVED
--- NOTE | 2018-07-19 11:20 | NUR ---
PATIENT STATES THAT HE DOESN'T WANT MORPHINE, PER DR. BABCOCK IT IS OKAY TO GIVE DILAUDID 1MG IVP PRN FOR PAIN.
--- NOTE | 2018-07-19 12:12 | NUR ---
CALLED DR. BABCOCK REGARDING CRITICAL RESULTS, STATES TO RE-DO BLOOD DRAW.
[2018-07-19 12:14] LABS: CARBON DIOXIDE 18.9 mmol/L (21-32); POTASSIUM 5.2 mmol/L (3.5-5.1)
[2018-07-19 12:21] LABS: ALBUMIN 2.8 g/dL (3.4-5.0); CREATININE 2.8 mg/dL (0.7-1.3)
[2018-07-19 12:22] LABS: TOTAL BILIRUBIN 2.3 mg/dL (0.0-1.0)
[2018-07-19 12:24] LABS: ANION GAP 17.8 (8-16)
[2018-07-19] MEDS: MEROPENEM 1,000 MG in NACL 0.9% 100 ML IV SCH ×2 (13:07→20:04)
--- NOTE | 2018-07-19 13:08 | NUR ---
DR. BABCOCK CALLED, STATES HE TALKED TO DR. GONZALEZ AND WANTS CT OF ABDOMEN WITH IV CONTRAST FOR TOMORROW.
--- NOTE | 2018-07-19 13:25 | NUR ---
DR. JAMA IS HERE TO SEE PATIENT, UPDATED ON PATIENT'S CONDITION.
[2018-07-19] MEDS: HYDROmorphone 1 MG/ML AMP IVP PRN ×2 (14:24→19:22)
--- NOTE | 2018-07-19 16:45 | NUR ---
PATIENT COMPLAINS OF NAUSEA, GAVE PRN ZOFRAN.
--- NOTE | 2018-07-19 16:56 | NUR ---
CALLED DR. NASH REGARDING STARTING PATIENT'S HOME MEDS, STATES NOT TO START ANY PO MEDS RIGHT NOW AND GIVE PATIENT 500ML BOLUS FOR HR OF 135.
[2018-07-19] MEDS ORDERED: NACL 0.9% 500 ML IV ONE (17:00)
--- NOTE | 2018-07-19 17:00 | NUR ---
PATIENT COMPLAINING OF PAIN 08/19, GAVE MORPHINE PRN. PATIENT TOLERATED WELL, WILL CONTINUE TO MONITOR
--- NOTE | 2018-07-19 17:41 | NUR ---
PATIENT HAS A TEMP OF 101.7, GAVE TYLENOL AND COOLING MEASURES APPLIED.
--- NOTE | 2018-07-19 18:18 | NUR ---
PATIENT IS TACHYPNEIC, RR IS IN 50S, EDUCATED WITH DEEP BREATHING EXERCISES.
--- NOTE | 2018-07-19 19:30 | NUR ---
RECEIVED BEDSIDE REPORT FROM JEFFERY EASTON RN. PT IS AWAKE, AGITATED COMPLAINTS OF 10/10 PAIN INT RUQ OF ABDOMEN. AAOX4, ABLE TO MAKE NEEDS KNOWN. TEMP 99.2, BP =115/50, SATING 93%, RR=43-47. ST ON COSTUME SEAMSTRESS WITH HR 142 BPM. ON 4L N/C. NPO EXCEPT MEDS, LARGE ROUND ABDOMEN. DENIES NAUSEA, NUMBNESS AND TINGLING AT THIS TIME. NO MARQUEZ IN PLACE, URINAL AT BEDSIDE. DONYA 22 GUAGE PIV, INFUSING NS AT 150/HR. ALLERGY TO SULFA DRUGS NOTED, HOB IS LOW LESS THAN 15DEG, PILLOW UNDER PT HEAD. SKIN IS INTACT, NORMAL IN COLOR. FALL RISK PRECAUTIONS MAINTAINED. SIDE RAILS UP X4.
--- NOTE | 2018-07-19 19:36 | NUR ---
AFTER ADMINISTRATION OF DILAUDID AT THIS TIME: PT IS ASLEEP,FLACC 0. HR REDUCED TO 127-133 (WAS PREVIOUSLY 142-145). RR IS ALSO REDUCED TO 37-41, SATING 93%.
--- NOTE | 2018-07-19 20:40 | NUR ---
DR. RODRIGEZ IN TO SEEP PATIENT, TO UPDATE WITH NEW ORDERS. PT REFUSED MARQUEZ CATH, BUT AGREED TO WEAR CONDOM CATH. CONDOM CATH PLACED AT THIS TIME.
[2018-07-19] MEDS ORDERED: NACL 0.9% 1,000 ML IV ONE (20:45)
[2018-07-19] MEDS ORDERED: SODIUM BICARBONATE 8.4% PFS 50 MEQ/50 ML SYR IVP ONE (21:06)
[2018-07-19] MEDS: SODIUM BICARBONATE 8.4% 150 MEQ in DEXTROSE 5% 1,000 ML IV SCH (21:20)
--- NOTE | 2018-07-19 21:38 | NUR ---
RECEIVED CALL FROM LAB, ARACELI STATED UNABLE TO GET RESULT OF PT LAB AT THIS TIME, PLAN TO FOLLOW-UP WITH LAB FAREED IN THE MORNING TO RECEIVE PATIENT LAB RESULTS.
[2018-07-20] VITALS (41 sets, daily range): BP systolic 76–135; BP diastolic 30–89
--- NOTE | 2018-07-20 00:04 | NUR ---
DR. SUTTON PAGED AT THIS TIME, PT INCREASED WORK OF BREATHING, HR 135, RR=45-50. UPDATED ON PATIENT CONDITION AND DR. SUTTON STATED TO INTUBATE PATIENT AT THIS TIME.
[2018-07-20] MEDS ORDERED: NOREPINEPHRINE 4 MG in DEXTROSE 5% 250 ML IV PRN (00:15)
--- NOTE | 2018-07-20 00:17 | NUR ---
DR. METCALF ARRIVE IN ICU, UPDATED ON PATIENT CONDITION. PATIENT ABLE TO RESPOND TO COMMANDS. DR. METCALF INFORMED PATIENT OF OF INTUBATION AND PATIENT REFUSED AT THIS TIME. DR. METCALF STATED TO DO AN EKG ON PATIENT, WILL NOT INTUBATE AT THIS TIME. WILL CARRY OUT.
--- NOTE | 2018-07-20 00:38 | NUR ---
PAGED DR. SUTTON, INFORMED OF PT REFUSED INTUBATION WITH DR. METCALF AT BEDSIDE. INFORMED DR. METCALF RECOMMENDED TO RUN EKG AT THIS TIME. RT AT BEDSIDE TO PERFORM EKG.
[2018-07-20] MEDS: HYDROmorphone 1 MG/ML AMP IVP PRN ×2 (01:02→06:02)
[2018-07-20] MEDS: NACL 0.9% 1,000 ML IV SCH ×2 (01:19→09:25)
[2018-07-20] MEDS ORDERED: SODIUM BICARBONATE 8.4% PFS 50 MEQ/50 ML SYR IVP ONE (02:36)
[2018-07-20] MEDS: SODIUM BICARBONATE 8.4% 150 MEQ in DEXTROSE 5% 1,000 ML IV SCH ×3 (03:02→14:57)
--- NOTE | 2018-07-20 03:44 | NUR ---
PT AWAKE AT THIS TIME, CONTINUALLY ASKING FOR ASSISTANCE REPOSITIONG THE HOB UP AND DOWN. PT APPEARS ANXIOUNS WANTING STAFF AT BEDSIDE CONTINUOUSLY. EDUCATED PATIENT THAT THIS IS ICU SETTING, HE IS ALWAYS WITH STAFF ON UNIT THAT WE CAN SEE HIM AND HEAR HIM, BUT CANNOT STAY AT PT BEDSIDE FOR REMAINDER OF SHIFT. HR REMAINS ELEVATED AT 130-137S, RR 35-45s. NASAL CANNULA REMAINS AT 5LPM.
[2018-07-20] MEDS: MORPHINE SULFATE 2 MG/ML SYR IVP PRN (04:04)
[2018-07-20] MEDS: MEROPENEM 1,000 MG in NACL 0.9% 100 ML IV SCH (04:04)
--- NOTE | 2018-07-20 05:25 | NUR ---
PT REMOVED NASAL CANNULA AND STARTED DESATING 78-80%, RR ABOVE 40. OXYGEN INCREASED AT THIS TIME TO 10LPM. PT DENIES PAIN WITH BREATHING. DENIES NAUSEA
--- NOTE | 2018-07-20 05:52 | NUR ---
RT ARASH CROOKS [facility] UNABLE TO READ MURPHY OR ONCHELEN NURSES) Addendum: 07/20/18 at 0643 by Faye Chanel RN PROVIDER ERROR. INGNORE THIS NOTE.
--- NOTE | 2018-07-20 06:20 | NUR ---
CALLED [facility] [phone] TO REPORT ABG SAMPLE REPORT EXCHANGE TAHIR TO PAGE DR. PEDRO SUTTON
--- NOTE | 2018-07-20 06:47 | NUR ---
PAGED DR. SUTTON UPDATED ON CRITICAL LAB OF PH 7.292, NO NEW ORDERS AT THIS TIME.
--- NOTE | 2018-07-20 07:05 | NUR ---
CHANGE PT TO 35% VENTURI MASK SPO2 98
--- NOTE | 2018-07-20 07:15 | NUR ---
RECEIVED BEDSIDE REPORT FROM SHERINE OROPEZA RN. PT OPEN EYES TO NAME, OX4, BUT LETHARGIC. TACHYPNEA WITH LABORED BREATHING, RR 46, ON VENTRURI MASK 9L, O2 SAT 96%. LUNG SOUNDS WHEEZING BILATERALLY. ABD SOUND HYPOACTIVE, ABD ROUND AND FIRM. NO EDEMA NOTED, CAP REFILL LESS THAN 3 SEC ON ALL EXTREMITIES. IV CATH TO RIGHT UA, 22 G, PATENT, INTACT AND ASYMPTOMATIC, RUNNING D5/BICARB AT 200ML PER HR. NPO EXCEPT MEDS, SKIN IS INTACT, COOL AND MOIST TO TOUCH. FALL RISK PRECAUTIONS MAINTAINED. SIDE RAILS UP X4, HOB ELEVATED 40DEG, BED LOCK AND ALARM ON.
--- NOTE | 2018-07-20 07:20 | NUR ---
PT NOTED WITH . LABORED BREATHING. TACHYPNEIC. KEPT HOB ELEVATED. SATURATION DROPPED TO 87% RT MADE AWARE.
[2018-07-20] MEDS: ACETAMINOPHEN 325 MG TAB PO PRN ×3 (07:43→19:09)
--- NOTE | 2018-07-20 07:45 | NUR ---
PLACED PT ON PHIILPS V60 ON DOCUMENTED SETTINGS, ALARMS ARE ON AND AUDIBLE, PT IN HF IN DISTRESS, WEARING F\F MASK SIZE LG GEL UNDER MASK, PT IN HF IRRITABLE, BS EXP WHEEZING HHN TO FOLLOW, BIPAP PLUGGED INTO RED OUTLET
--- NOTE | 2018-07-20 07:45 | NUR ---
RT CALLED DR BECKHAM, ORDERS WILL PUT IN BY RT.
[2018-07-20] MEDS: ALBUTEROL SULFATE/IPRATROPIU 3 ML SOL IH PRN ×2 (08:00→11:20)
[2018-07-20] MEDS ORDERED: LORazepam 2 MG/ML VIAL IVP PRN (08:30)
--- NOTE | 2018-07-20 08:30 | NUR ---
SPOKE WITH DR BECKHAM. REPORTED THAT PT KEEPS TAKING OFF HIS BIPAP AND SEEMS ANXIOUS, ASKED FOR ANXIETY MED ORDER. 1MG ATIVAN IVP Q4H PRN, ORDER RECEIVED. REPORT LATEST VITALS TO MD, HR 146, O2 SAT 99%, RR 46, 81/56. IF BP STAYS ON THE LOW SIDE, OK TO BOLUS 1L. MD WILL SEE PT TODAY.
[2018-07-20] MEDS ORDERED: LORazepam 2 MG/ML VIAL ONE (08:42)
[2018-07-20 08:43] LABS: HEMATOCRIT 37.2 % (36-52); MEAN CORPUSCULAR HEMOGLOBIN 28 pg (27-31); MEAN CORPUSCULAR HGB CONC 32 g/dL (33-37); MEAN CORPUSCULAR VOLUME 88.1 fL (80-94); PLATELET COUNT (AUTO) 266 K/uL (140-450); RED BLOOD CELL COUNT(AUTO) 4.22 MIL/uL (4.20-6.10); RED CELL DISTRIBUTION WIDTH 14.6 % (11.6-13.7)
[2018-07-20 08:48] LABS: WHITE BLOOD COUNT (AUTO) 9.5 K/uL (4.8-10.8)
[2018-07-20 08:49] LABS: LYMPHOCYTES % (MANUAL) 10 % (20-46); MONOCYTES % (MANUAL) 6 % (5-12)
[2018-07-20] MEDS: ENOXAPARIN 40 MG/0.4 ML SYR SUBQ SCH (09:32)
--- NOTE | 2018-07-20 10:40 | NUR ---
DR BECKHAM CAME, SEEN PT. TOLD PT THAT HE NEEDS TO BE INTUBATED. PT VERBALIZED UNDERSTANDING AND SAID YES. PT WAS INTUBATED BY DR BECKHAM, 7.5 ETT 23 AT LIP LINE. OGT PLACED. CHEST X RAY WAS ORDERED TO CONFIRM TUBES PLACEMENT.
[2018-07-20] MEDS ORDERED: MIDAZOLAM MDV 50 MG in NACL 0.9% 40 ML IV PRN (10:45)
--- NOTE | 2018-07-20 10:55 | NUR ---
MARQUEZ CATH INSERTED FOR PT. PT TOLERATED WELL.
--- NOTE | 2018-07-20 10:59 | NUR ---
PT INTUBATED BY DR LUCAS EET SIZE 7.5 23 CMIS SECURED, ALARMS ARE ON AND AUDIBLE,, PT IN HF IRRITABLE, BS EXP WHEEZING, CXR HHN TO FOLLOW, BMV HOB,VENT PLUGGED INTO RRED OUTLET, PT IS RESTRAINED Addendum: 07/20/18 at 1233 by Xin Connelly RT radio script writer could not be obtained at this time
--- NOTE | 2018-07-20 11:38 | NUR ---
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 DR BECKHAM CELL PHONE IS [phone].
[2018-07-20] MEDS ORDERED: ROCURONIUM 50 MG/5 ML VIAL IV ONE (11:40)
[2018-07-20] MEDS ORDERED: ETOMIDATE 20 MG/10 ML VIAL IVP ONE (11:40)
--- NOTE | 2018-07-20 11:47 | NUR ---
DR. FORBES CAME IN TO SEE PT AT BEDSIDE, UPDATED PT'S CONDITION, WILL CONTINUE TO MONITOR. Addendum: 07/20/18 at 1458 by Rico Hall RN DR. RODRIGEZ
--- NOTE | 2018-07-20 11:48 | NUR ---
CALLED TOBY [facility], NOTIFIED HER OF NEW ORDER TO TRANSFER PT TO HIGH LEVEL CARE, SHE TOLD ME TO CALL [facility] [phone] [facility]. CALLED [facility] AND LEFT MESSAGE.
--- NOTE | 2018-07-20 11:55 | NUR ---
CALLED [facility] [phone] SPOKE TO GINGER NURSING STEAM HAND, TO OBTAIN ICU BED FOR THIS PATIENT. PER GINGER NO ICU BED AT THIS TIME AND SHE WILL CALL SOON BED IS AVAILABLE. INFORMED GINGER THAT PER DR BECKHAM, IF THERE IS A BED THEN HE WILL CALL DR CHI TO ADMIT/ RECEIVE THE PATIENT.
--- NOTE | 2018-07-20 12:05 | NUR ---
CHANGED PT TO A\C PRVC DR LUCAS AWARE DUE TO HIGH PP, ABG COULD NOT BE OBTAINED AT THIS TIME DUE TO LOW BP
--- NOTE | 2018-07-20 12:05 | NUR ---
FAXED CLINICALS TO [facility] [phone].
[2018-07-20] MEDS ORDERED: fentaNYL 1 MG in NACL 0.9% 80 ML IV PRN (12:10)
[2018-07-20] MEDS ORDERED: MIDAZOLAM MDV 100 MG in NACL 0.9% 80 ML IV PRN (12:15)
--- NOTE | 2018-07-20 12:15 | NUR ---
CESAR FROM [facility] [phone] IN CHARGE OF HIGH LEVEL TRANSFER CALLED,UPDATED HIM OF PATIENT STATUS, CLINICALS FAXED TO HIM AT [phone].
[2018-07-20] MEDS ORDERED: LORazepam 2 MG/ML VIAL IVP SCH (12:30)
--- NOTE | 2018-07-20 12:30 | NUR ---
INSERTED OGT, PLACEMENT CHECKED WITH TWO RNS. PT TOLERATED WELL FOR THE PROCEDURE.
[2018-07-20] MEDS ORDERED: ALBUTEROL SULFATE/IPRATROPIU 3 ML SOL IH SCH (13:00)
--- NOTE | 2018-07-20 13:00 | NUR ---
CALLED [facility] SPOKE TO [facility] BED CONTROL, CLINICALS FAXED TO [phone], PER HERMAN NO ICU BED AVAILABLE YET. HERMAN SAID SHE WILL CALL WHEN BED IS AVAILABLE.
--- NOTE | 2018-07-20 13:05 | NUR ---
DECREASE FIO2 TO 75
--- NOTE | 2018-07-20 14:00 | NUR ---
PT' CAR KEYS TAKEN BY FATHER. FATHER SAID HE WILL TAKE PATIENT'S CAR HOME AND BRING PT'S MOTHER HERE.
--- NOTE | 2018-07-20 14:00 | NUR ---
PT'S FATHER IN TO SEE PATIENT. CALLED AND SPOKE TO MOTHER GRAYSON QUINTEROS #[phone]. SHE SAID OKAY TO RELEASE INFORMATION TO THE FATHER. MOTHER MADE AWARE OF PT STATUS. UPDATED PT STATUS FATHER WELL. FATHER MADE AWARE OF PLAN TO TRANSFER HIGHER LEVEL OF CARE. ACOUSTIC SENSOR OPERATOR CAME IN TO EVALUATE PT AND ALSO TALK TO THE FATHER. FATHER SIGNED THE CONSENT FOR DISCLOSER OF HEALTH INFORMATION AND PT TRANSFER ACKNOWLEDGEMENT FORM. FORM PLACED IN THE CHART.
--- NOTE | 2018-07-20 14:07 | NUR ---
CALLED [facility] TO FOLLOW-UP , SPOKE TO GINGER SHE SAID THERE IS NO ICU BED YET, AND SHE WILL TRY TO GET AN VEGETABLE HARVEST WORKER AND THEN THIS PATIENT WILL BE ADMITTED BY DR JACKMAN.
--- NOTE | 2018-07-20 14:08 | NUR ---
TIME OUT FOR PICC LINE INSERTION, PICC LINE NURSE BILL AND US TECH AT BEDSIDE.
--- NOTE | 2018-07-20 14:45 | NUR ---
PICC LINE INSERTED TO RIGHT UPPER ARM BY JOSE CELESTE AT BEDSIDE, X-RAY DONE, OK TO USE PER BOOKER.
--- NOTE | 2018-07-20 14:55 | NUR ---
CALLED [facility] [phone] FOR AUTHORIZATION, PER [facility] WILL WAIT UNTIL PT ACCEPTED IN THE HOSPITAL.
--- NOTE | 2018-07-20 15:02 | NUR ---
[facility] FROM [facility] CALLED FOR TRANSPORTATION AUTHORIZATION # [id number].
[2018-07-20 15:03] LABS: CARBON DIOXIDE 24.5 mmol/L (21-32); POTASSIUM 5.5 mmol/L (3.5-5.1)
[2018-07-20 15:06] LABS: CREATININE 4.1 mg/dL (0.7-1.3); TOTAL BILIRUBIN 4.3 mg/dL (0.0-1.0)
[2018-07-20 15:07] LABS: ALBUMIN 2.5 g/dL (3.4-5.0)
--- NOTE | 2018-07-20 15:09 | NUR ---
FAXED TRANSFER BACK AGREEMENT TO [facility] [phone].
[2018-07-20 15:12] LABS: MAGNESIUM 1.1 mg/dL (1.8-2.4)
--- NOTE | 2018-07-20 15:55 | NUR ---
CALLED DR BECKHAM. REPORTED PT'S LAB RESULT MG 1.1, TRIGLYCERIDES 501, K 5.5, AND FEVER STILL 102.0. ORDERS RECEIVED, WILL PUT IN THE COMPUTER SYSTEM. Addendum: 07/20/18 at 1934 by Sergio Wen RN MD RICHELLE BOOGIE 3.375 Q8H, MG DELGADO Benz.
--- NOTE | 2018-07-20 15:55 | NUR ---
REPORTED PT STILL HAVE TEMP OF 102F ORAL. DR BECKHAM ORDERED ZOSYN 3.375G Q8H.
[2018-07-20] MEDS ORDERED: FUROSEMIDE 100 MG/10 ML VIAL IV SCH (16:00)
--- NOTE | 2018-07-20 16:00 | NUR ---
GINGER FROM [facility] CALLED AND SAID THAT THEY WILL HAVE A BED AVAILABLE BY 7 PM, CALLED [facility] FOR TRANSFER AUTHORIZATION # [id number].
--- NOTE | 2018-07-20 16:05 | NUR ---
DECREASE RR TO 18, VT T0 500 FIO2 IS 60 PEEP7
[2018-07-20] MEDS ORDERED: MAG SULF 2000 MG/WATER PREMIX 50 ML IV SCH ×2 (16:15→18:15)
--- NOTE | 2018-07-20 16:19 | NUR ---
NOTIFIED HOSPICE CARE CONSULTANT NURSE JUSTO IN ICU THAT [facility] HAS AVAILABLE BED BY 7PM.
--- NOTE | 2018-07-20 16:25 | NUR ---
RADHA GARCIA BINDER CASER NOTIFIED AND UPDATED OF THE PATIENT STATUS TO TRANSFER TO [facility].
[2018-07-20] MEDS ORDERED: SODIUM POLYSTYRENE 15 GM/60 ML UDBTL PR SCH (16:30)
--- NOTE | 2018-07-20 16:40 | NUR ---
TRANSPORTATION AUTH # [id number], TRANSFER AUTHORIZATION # [id number]
--- NOTE | 2018-07-20 16:50 | NUR ---
PER DR. BECKHAM, KEEP ALL THE ACTIVE MEDICATIONS WHEN TRANSFER TO [facility], AND IT IS OK FOR RN TO DO THE DISCHARGE MEDICATION RECONCILE FOR HIM AT THIS TIME.
--- NOTE | 2018-07-20 17:00 | NUR ---
RECEIVED CALL FROM CASE MANAGEMENT SPOKE TO KAJAL HERNÁNDEZ. KAJAL SAID PT WILL BE TRANSFERRED TO [facility] BY 7PM TODAY. SAID CALL #[phone] GINGER (INCHARGE OF THE BED) TO GIVE REPORT. JOSE QUISPE MADE AWARE.
--- NOTE | 2018-07-20 17:23 | NUR ---
RECEIVED CALL FROM RN SUPERVISOR CONCRETE [employer] SHARLA. SHARLA SAID PT IS GOING TO [facility] ICU R00M [id number]. AUTHORIZATION NUMBER GIVEN WAS [id number].
--- NOTE | 2018-07-20 17:36 | NUR ---
CALLED [facility] #[phone] AND ARRANGED FOR TRANSPORTATION. [facility] SAID THEY WILL BE HERE FOR GREEN END MAN AT 1930 WITH RN DURING TRANSFER.
[2018-07-20] MEDS ORDERED: ARIP5TAB8 PO (17:40)
[2018-07-20] MEDS ORDERED: CALCIUM GLUCONATE 10% 2,000 MG in NACL 0.9% 100 ML IV SCH (18:00)
[2018-07-20] MEDS ORDERED: [UNRECOGNIZED DRUG - CODE] IV (18:00)
[2018-07-20] MEDS ORDERED: FUROSEMIDE 100 MG in DEXTROSE 5% 100 ML IV SCH (18:00)
[2018-07-20] MEDS ORDERED: MER1I IV (18:01)
[2018-07-20] MEDS ORDERED: ALBU2.5V IH (18:03)
[2018-07-20] MEDS ORDERED: FAMO-90 IVP (18:05)
[2018-07-20] MEDS ORDERED: PIPE1PDS26 IV (18:06)
[2018-07-20] MEDS ORDERED: LOV40I SUBQ (18:07)
--- NOTE | 2018-07-20 18:10 | NUR ---
CALLED [facility] TO GIVE REPORT, THEY WANTED ME TO CALL BACK IN 15MIN BECAUSE THEY HAVE A CODE.
[2018-07-20] MEDS ORDERED: NORE4PLA IV (18:15)
[2018-07-20] MEDS ORDERED: [UNRECOGNIZED DRUG - CODE] IV (18:18)
[2018-07-20] MEDS ORDERED: [UNRECOGNIZED DRUG - CODE] IV (18:22)
[2018-07-20] MEDS ORDERED: MIDA1PLA IV (18:24)
[2018-07-20] MEDS ORDERED: [UNRECOGNIZED DRUG - CODE] IV (18:24)
[2018-07-20] MEDS ORDERED: LORA-476 IVP (18:25)
[2018-07-20] MEDS ORDERED: HYDR2TAB6 PO (18:25)
--- NOTE | 2018-07-20 18:30 | NUR ---
[facility] CALLED, REPORT GIVEN TO ICU CHARGE NURSE TAINA PT GOING TO ICU 298.
--- NOTE | 2018-07-20 19:20 | NUR ---
REPORT GIVEN TO [facility] SIGNALS COLLECTOR/ANALYST, DARIUS.
--- NOTE | 2018-07-20 19:55 | NUR ---
PT TRANSFERRED TO [facility] FOR HIGHER LEVEL OF CARE VIA [facility]. VERSED DRIP,LASIX AND LEVOPHED DRIP ONGOING. PTS PARENTS AT BEDSIDE AND AWARE OF THE TRANSFER.QUESTIONS ANSWERED
--- NOTE | 2018-07-20 20:00 | NUR ---
PHONE CALL TO PTS FATHER TAVIA QUINTEROS; PTS BELONINGS IN THE UNIT.HE SAID HE WILL COME AND PICK IT UP LATER TONIGHT.
[2018-07-20] MEDS ORDERED: SODIUM BICARBONATE 8.4% 50 MEQ in DEXTROSE 5% 1,000 ML IV SCH (21:00)
[2018-07-20] MEDS ORDERED: MEROPENEM 1,000 MG in NACL 0.9% 100 ML IV SCH (21:00)
[2018-07-20] MEDS ORDERED: PIPER/TAZO 3.375GM/D5W PREMIX 50 ML IV SCH (21:00)
[2018-07-20] MEDS ORDERED: FAMOTIDINE 20 MG/2 ML VIAL IV SCH (21:00)
--- NOTE | 2018-07-20 21:12 | NUR ---
ALL BELONGINGS GIVEN TO PTS FATHER
[2018-07-21] MEDS ORDERED: CLINICAL MONITORING MC SCH (09:00)
[2018-07-21 09:46] LABS: PROTHROMBIN TIME 11.9 secs (10.8-13.4)
[2018-07-21 09:48] LABS: ANION GAP 20.7 (8-16); CARBON DIOXIDE 20.1 mmol/L (21-32); POTASSIUM 3.8 mmol/L (3.5-5.1)
[2018-07-21 09:54] LABS: CREATININE 5.2 mg/dL (0.7-1.3); TOTAL BILIRUBIN 3.9 mg/dL (0.0-1.0)
[2018-07-21 09:55] LABS: ALBUMIN 2.6 g/dL (3.4-5.0)
== END 2018-07-20 19:55 | disposition short-term general hospital (02) | DRG 282 ==
LOC: MED 02:49 → MTU 11:59 → MIC 07-19 07:55
PROVIDERS: ADMIT Internal Medicine; ATTEND Internal Medicine
PROC: 0BH17EZ Insertion of Endotracheal Airway into Trachea, Via Natural or Artificial Opening (ICD-10-PCS; principal; 2018-07-20)
PROC: 5A1935Z Respiratory Ventilation, Less than 24 Consecutive Hours (ICD-10-PCS; 2018-07-20)
PROC: 5A09357 Assistance with Respiratory Ventilation, Less than 24 Consecutive Hours, Continuous Positive Airway Pressure (ICD-10-PCS; 2018-07-20)
DX: K85.90 Acute pancreatitis without necrosis or infection, unspecified (principal); J96.01 Acute respiratory failure with hypoxia; N17.9 Acute kidney failure, unspecified; E87.2 Acidosis; R65.10 Systemic inflammatory response syndrome (SIRS) of non-infectious origin without acute organ dysfunction; E83.51 Hypocalcemia; E86.0 Dehydration; K76.0 Fatty (change of) liver, not elsewhere classified; K86.1 Other chronic pancreatitis; E66.9 Obesity, unspecified; E78.1 Pure hyperglyceridemia; E78.5 Hyperlipidemia, unspecified; I10 Essential (primary) hypertension; F31.9 Bipolar disorder, unspecified; Z88.2 Allergy status to sulfonamides; Z79.899 Other long term (current) drug therapy; Z68.36 Body mass index [BMI] 36.0-36.9, adult
CPT/HCPCS: 36415; 36600; 71045; 71250; 74018; 76700; 80053; 80061; 80305; 81001; 81003; 82150; 82330; 82803; 82977; 83605; 83690; 83735; 84100; 84478; 85025; 85610; 85730; 87040; 87070; 87081; 87086; 87205; 89220; 93005; 94002; 94640; 94660; 96361; 96374; 96375; 96376; 99285; C1751; G0482; J0610; J1170; J1650; J1885; J1940; J2060; J2185; J2250; J2270; J2405; J2543; J3010; J3475; J3490; J7030; J7060; J7620; Q0092